=== PATIENT | male | born 1975 | race Caucasian/White ===

== ENCOUNTER 2020-10-01 14:20 | Emergency (ER) | payer BC, SELFPAY ==
--- NOTE | ~2020-10-01 | XR_ITS ---
EXAMINATION: XR hand RT min 3V EXAM DATE: 10/01/2020 14:30 INDICATION: Initial encounter following injury, with pain of the right hand. TECHNIQUE: Right hand frontal, lateral and oblique projections obtained and reviewed. There is no pr ior study for comparison. FINDINGS: There is an oblique fracture through the midshaft of the right 3rd metacarpal bone with abo ut 4 mm displacement posteromedially. Minimal volar angulation. There is overlying soft tissue swelli ng. There is widening of the scapholunate joint space, at least partial dissociation. This is age indeter minate. IMPRESSION: 1. Acute right 3rd metacarpal shaft fracture with mild displacement and minimal angulation. 2. Scapholunate widening, at least partial dissociation. Reviewed, dictated and finalized at location A. IMPRESSION: 1. Acute right 3rd metacarpal shaft fracture with mild displacement and minima l angulation. 2. Scapholunate widening, at least partial dissociation.
[2020-10-01 15:02] VITALS: BP 131/83; PULSE 73; RESP 18; TEMP 36.3; O2SAT 99
[2020-10-01 18:00] VITALS: BP 131/61; PULSE 77; RESP 16; TEMP 36.8; O2SAT 96
--- NOTE | 2020-10-01 18:12 | ED.UPPEXIN ---
HPI - Extremity Injury (Upper) General Chief Complaint: Extremity Injury, Upper Stated Complaint: right hand injury Time Seen by Provider: 10/01/20 17:54 Source: patient Mode of arrival: ambulatory Limitations: no limitations History of Present Illness HPI narrative: This is a 44 year old left hand dominant male who presents for evaluation of right hand pain. He states today he accidentally slipped. This caused him to fall backwards onto his buttocks . He thinks fell onto his hand because he noticed right hand swelling and pain. He denies any additionally injurys. He has pain in his mid hand with movement. 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 He denies numbness or tingling. complaint: injury to: right and hand Other injuries: none Treatments prior to arrival: NSAIDS Related Data Allergies Allergy/AdvReac Type Severity Reaction Status Date / Time Sulfa (Sulfonamide Allergy Unknown Other Verified 10/01/20 15:07 Antibiotics) Review of Systems Review of Systems: All systems reviewed & are unremarkable except as noted in HPI and below PMFSH Past Medical History Medical History (Updated 10/01/20 @ 18:43 by Praveena Sanchez MD) Patient denies medical problems Surgical History Surgical History (Updated 10/01/20 @ 18:24 by Praveena Sanchez MD) Hx of tonsillectomy Social History Social History Smoking end date: 06/24/09 Alcohol intake: current Gender identity (if verbalized by the patient): Male Exam Const: General: no acute distress and alert Orientation/consciousness: patient oriented x3 HENMT: Head: normocephalic and atraumatic Face and sinus: face symmetric Eyes: EOM: EOMs intact bilaterally Resp: Effort & Inspection: normal respiratory effort Skin: Rashes: no rashes Neuro: General: patient oriented x3 Extrem: Other: right hand with dorsum swelling, tenderness mid hand, FROM of wrist. able to move fingers, neurovascularly intact Psych: Mental Status: mental status grossly normal Affect: normal affect Course Consultations Consultation #1: I discussed xray with Dr. Martin. He states patient can be placed in a splint and he can follow up as an outpatient. Date: 10/01/20 Time: 18:13 Vital Signs Vital signs: Vital Signs Temperature 97.4 F L 10/01/20 15:02 Pulse Rate 73 10/01/20 15:02 Respiratory Rate 18 10/01/20 15:02 Blood Pressure 131/83 10/01/20 15:02 Pulse Oximetry 99 10/01/20 15:02 Temperature 97.4 F L 10/01/20 15:02 Pulse Rate 73 10/01/20 15:02 Respiratory Rate 18 10/01/20 15:02 Blood Pressure 131/83 10/01/20 15:02 Pulse Oximetry 99 10/01/20 15:02 MDM - Extremity Injury (Upper) Imaging Data Radiologist's impression: ITS Impressions Hand X-Ray 10/01/20 14:32 IMPRESSION: 1. Acute right 3rd metacarpal shaft fracture with mild displacement and minimal angulation. 2. Scapholunate widening, at least partial dissociation. Discharge Plan Discharge Clinical Impression: Closed fracture of shaft of metacarpal bone of right hand Qualifiers: Encounter type: initial encounter Metacarpal bone: third Fracture alignment: displaced Qualified Code(s): S62.322A - Displaced fracture of shaft of third metacarpal bone, right hand, initial encounter for closed fracture Patient Disposition: Home, Self-Care Condition: Stable Instructions: Antibiotic Form, Hand Fracture (ED), Splint Care (ED) Additional Instructions: Today you were found to have a broken hand. you will need to wear splint and call Dr. Martin for evaluation of that injury. He will determine plan of action at time of evaluation. Call this week . Prescriptions: New hydrocodone-acetaminophen 5-325 mg tablet 1 tablet PO Q6H PRN (Reason: pain) Qty: 14 RF: 0 Follow-up/Referrals: Liliana,Tramaine Pettit MD [Primary Care Provider] - Karan Martin MD [Physician] -
[2020-10-01 20:06] VITALS: BP 129/76; PULSE 72; RESP 16; TEMP 36.4; O2SAT 99
== END 2020-10-01 20:06 | disposition home or self-care (01) ==
PROVIDERS: Emergency Provider General Practice; PCP Internal Medicine
DX: S62.322A Displaced fracture of shaft of third metacarpal bone, right hand, initial encounter for closed fracture (principal); W01.0XXA Fall on same level from slipping, tripping and stumbling without subsequent striking against object, initial encounter
CPT/HCPCS: 29125; 73130; 99284

== ENCOUNTER → 2020-10-10 01:57 | Outpatient (CLI) | payer BC, SELFPAY ==
[2020-10-10 19:04] LABS: SARS-CoV-2 RNA PCR Negative
== END ==
PROVIDERS: PCP Internal Medicine; Visit Provider Plastic Surgery
DX: Z01.812 Encounter for preprocedural laboratory examination (principal); Z20.822 Contact with and (suspected) exposure to COVID-19
CPT/HCPCS: C9803; U0003; U0005

== ENCOUNTER 2020-10-13 03:17 | Day surgery (SDC) | payer BC, SELFPAY ==
[2020-10-06 11:21] VITALS: BMI 29.9
[2020-10-13] VITALS (8 sets, daily range): BP systolic 115–169; BP diastolic 62–92; PULSE 67–89; RESP 10–20; TEMP 36.8–37.4; O2SAT 98–100
--- NOTE | ~2020-10-13 | XR_ITS ---
EXAMINATION: XR surgery orthopedic DATE: 10/13/2020 14:52 INDICATION: Right third metacarpal fracture TECHNIQUE: 3 fluoroscopic spot images of the right hand were obtained during procedure performed by Can Martin. Radiologist was not present for the imaging or procedure. The amount of fluoroscopy time us ed during this procedure was 1.2 minutes. COMPARISON: 10/01/2020 FINDINGS: Interval reduction to near-anatomic alignment of the oblique diaphyseal fracture of the right third m etacarpal which is now fixed with 4 screws. No other fractures identified. Joint spaces are normal. E xpected small amount of postoperative gas in the surrounding soft tissues. IMPRESSION: 1. Near-anatomic alignment post open reduction internal fixation of a right third metacarpal diaphyse al fracture. Reviewed, dictated and finalized at location A. IMPRESSION: 1. Near-anatomic alignment post open reduction internal fixation of a right thi rd metacarpal diaphyseal fracture.
--- NOTE | 2020-10-13 07:02 | WPDHPUPDATE1 ---
History and Physical Update Update Date/Time: 10/13/20 07:02 History and Physical has been reviewed, including an updated exam of the patient. There are NO changes in the patient's condition. Risks, benefits, and alternatives have been discussed and questions answered. Patient agrees to proceed with procedure.
--- NOTE | 2020-10-13 12:21 | WPDANESEPP ---
Anes - Eval Pre Procedure Procedure: Operation Date: 10/13/20 14:00 Proposed Procedures p Open Reduction Internal Fixation Middle Right Third Metacarpal - Karan Martin MD Date/Time: 10/13/20 12:21 Pre Op Diagnosis: slightly displaced midshaft spiral fx, Patient Data Age: 44 Gender: M Height: 1.8 m Weight: 97.55 kg Allergies Allergy/AdvReac Type Severity Reaction Status Date / Time Sulfa (Sulfonamide Allergy Unknown Unknown Verified 10/06/20 11:04 Antibiotics) Home Medications Medication Instructions Recorded Confirmed Type ibuprofen 400 mg PO Q6H PRN 10/06/20 10/06/20 History Patient hx anesthesia problems: none Family hx anesthesia problems: none PMFSH Past Medical History Medical History Obesity (BMI 30-39.9) Smoker Surgical History Surgical History (Updated 10/01/20 @ 18:24 by Praveena Sanchez MD) Hx of tonsillectomy Social History Social History Years smoked: 20 Smoking status: Current every day smoker Tobacco type: cigarettes Smoking end date: 06/24/09 Alcohol intake: current Drinks per week: 1 Substance use: current Substance use type: marijuana Last use: AUGUST 2020 Living arrangements: with family Gender identity (if verbalized by the patient): Male Spiritual care concerns: No Exam Day of Procedure 10/13/20 12:21
[2020-10-13] MEDS: LACTATED RINGERS 1,000 ML 30 ML IV CONT ×2 (12:28→14:46)
--- NOTE | 2020-10-13 12:29 | WPDANESEPPF ---
Anes - Initial Pre Proc Eval Procedure: Operation Date: 10/13/20 14:00 Proposed Procedures p Open Reduction Internal Fixation Middle Right Third Metacarpal - Karan Martin MD Date/Time: 10/13/20 12:29 Surgeon: Karan Martin MD Pre Op Diagnosis: slightly displaced midshaft spiral fx, Patient Data Age: 44 Gender: M Height: 5 ft 11 in Weight: 97.55 kg Allergies Allergy/AdvReac Type Severity Reaction Status Date / Time Sulfa (Sulfonamide Allergy Unknown Unknown Verified 10/13/20 12:32 Antibiotics) Home Medications Medication Instructions Recorded Confirmed Type ibuprofen 400 mg PO Q6H PRN 10/06/20 10/06/20 History Patient hx anesthesia problems: none Family hx anesthesia problems: none PMFSH Past Medical History Medical History Obesity (BMI 30-39.9) Smoker Surgical History Surgical History (Updated 10/01/20 @ 18:24 by Praveena Sanchez MD) Hx of tonsillectomy Social History Social History Years smoked: 20 Smoking status: Current every day smoker Tobacco type: cigarettes Smoking end date: 06/24/09 Alcohol intake: current Drinks per week: 1 Substance use: current Substance use type: marijuana Last use: AUGUST 2020 Living arrangements: with family Gender identity (if verbalized by the patient): Male Spiritual care concerns: No Anes - Eval Final PreProcedure Day of Procedure 10/13/20 12:29 Patient weight: obese Heart: regular rate and rhythm Lungs: clear to auscultation Airway: Mallampati scale class II Neurological: alert and oriented Last oral intake: >/= 8 hours ASA classification: II Emergent: no Anesthetic plan: proceed Anesthesia type and monitoring: general LMA and standard monitoring Informed Consent: The patient's anesthetic plan and its attendant risks and benefits were discussed with the patient/family/POA. Questions were solicited and answers provided to the satisfaction of the patient/family/POA.
[2020-10-13] MEDS: ceFAZolin 2 GM/D5W 50 ML 2 GM/50 ML BAG IVPB (12:38)
[2020-10-13] MEDS: LIDO 1%/EPINEPHRINE 1:100,000 50 ML VIAL INFILTRATE (13:09)
[2020-10-13] MEDS: BUPIVACAINE HCL 0.5% PF 30 ML VIAL INFILTRATE (14:39)
--- NOTE | 2020-10-13 15:12 | PM.OP ---
Procedure Note - Brief Procedure Note - Brief Date of procedure: 10/13/20 Pre-op diagnosis: slightly displaced midshaft spiral fx, Post-op diagnosis: other (Comminuted fracture of the right 3rd metacrpal shaft) Procedure performed: ORIF of comminuted right 3rd metacarpal fracture. Implants: Screws from the [employer] set. 2mm x 2 and 1.5 mm x 2. Anesthesia: GETA Surgeon: Karan Martin MD Nurses Superintendent: Jamie Estimated blood loss (mL): 3 Tourniquet time (min): 92 Drains: No Packing: No Pathology: none sent Complications: No immediate complications Condition: stable Disposition: PACU
--- NOTE | 2020-10-13 15:19 | PM.PROC ---
Procedure Note - Detailed Date of procedure: 10/13/20 Pre-op diagnosis: slightly displaced midshaft spiral fx, Post-op diagnosis: other (Comminuted midshaft fracture of the right 3rd metacarpal) Procedure performed: Open reduction internal fixation with screws for comminuted fracture of the right 3rd metacarpal shaft. Description of procedure: The right dorsal hand was marked while the patient waited in the holding area. He was taken to the operating room and placed supine on the operating table. A time-out was held and confirmed. He was given general anesthesia with an LMA. The extremity was prepped and draped in usual fashion. The site was marked after confirming the fracture with the C-arm image. This area was infiltrated with 1% lidocaine with epinephrine. The tourniquet was inflated to 250 mmHg. I cauterized 2 small bridging veins. The access was to the ulnar side of the extensor tendon. The periosteum was incised. There was a lot of hemorrhagic staining in this tissue. The fracture was long and extended most of the length of the shaft. We were able to identified the butterfly segment which complicated the repair. The reduction was achieved and fixation was completed with 2 2 mm lag screws, 1 distally and 1 proximally. Following that additional 1.5 mm bicortical screws were placed to stabilize the butterfly segment with the 2nd screws into each of the larger fragments. This construct was imaged. The site was irrigated and the wound closed with 4-0 Vicryl and 4-0 Monocryl. A bulky dressing was applied to his hand. The index and middle fingers were additionally henri-taped. He is being discharged with instructions in wound care and follow-up. He was given 2 g of Ancef preop. He is discharged with prescription for oxycodone . The site was also locally infiltrated with 8 milliliter of 0.5% Marcaine plain at the end of the case Surgeon: Karan Martin MD
--- NOTE | 2020-10-13 16:42 | SUR.PHASEII ---
patient states increased pain with getting dressed. requesting pain pill for ride home.
[2020-10-13] MEDS: oxyCODONE HCL (*CRX) 5 MG TAB IR PO (16:44)
== END 2020-10-13 16:50 | disposition home or self-care (01) ==
PROVIDERS: PCP Internal Medicine; Visit Provider Plastic Surgery
PROC: (CPT 26615; principal; 2020-10-13 14:00)
DX: S62.322A Displaced fracture of shaft of third metacarpal bone, right hand, initial encounter for closed fracture (principal); W10.9XXA Fall (on) (from) unspecified stairs and steps, initial encounter; E66.9 Obesity, unspecified; Z68.31 Body mass index [BMI] 31.0-31.9, adult; F17.210 Nicotine dependence, cigarettes, uncomplicated; F12.90 Cannabis use, unspecified, uncomplicated
CPT/HCPCS: 26615; A9270; C1713; J0690; J1100; J1170; J2250; J2405; J2704; J3010; J7120